=== PATIENT | male | born 1995 | race American Indian/Alaskan Native ===

== ENCOUNTER 2021-01-17 13:40 | Emergency (ER) | payer SELFPAY ==
[2021-01-17 13:48] VITALS: BP 136/83
[2021-01-17] MEDS ORDERED: TETANUS,DIPH,PERTUSS(ACELL) VACCINE 0.5 ML SYRINGE IM ONE (14:26)
[2021-01-17] MEDS ORDERED: HYDROcodone/ACETAMINOPHEN 10-325MG TAB PO ONE (14:26)
--- NOTE | 2021-01-17 15:30 | Cat Scan Report ---
CT MAXILLOFACIAL WITHOUT CONTRAST INDICATION / CLINICAL INFORMATION: Pt has an upper lip laceration, possible fracture. TECHNIQUE: All CT scans at this location are performed using CT dose reduction for ALARA by means of automated e xposure control. COMPARISON: None available. FINDINGS: FACIAL BONES: There are notable edematous changes of the soft tissues along the upper lip with foci o f air compatible patient's reported history of laceration. Additionally, there is notable lucency denisse rounding the left maxillary medial incisor with defect along the anterior cortex at. This finding may be related to an odontogenic disease at. No definitive displaced osseous fragment is identified at. There is mild deviation of the nasal septum cartilage toward the right. The nasal bones appear intact . The remaining facial bones, including the orbital kaur, sinuses and zygomatic arches appear intact. PARANASAL SINUSES: The paranasal sinuses are clear without air-fluid levels at. ORBITS: No significant ventral changes are seen involving the orbits. VISUALIZED INTRACRANIAL STRUCTURES: No significant abnormality. ADDITIONAL FINDINGS: None. IMPRESSION: 1. There are not edematous changes of the soft tissues of the upper left with foci of air compatibl e patient's history of laceration. There is notable lucency surrounding the root of the adjacent left maxillary medial incisor which would appear to be related to an odontogenic disease though correlati on would be needed given the defect of the anterior cortex and traumatic process. Signer Name: Peter Chase MD Signed: 01/17/2021 3:25 PM Workstation Name: [id number]
--- NOTE | 2021-01-17 17:01 | Emergency Department Report ---
- General Chief complaint: Wound/Laceration Stated complaint: LIP INJURY/WORK REALTED Time Seen by Provider: 01/17/21 14:22 Source: patient Mode of arrival: Ambulatory Limitations: No Limitations - History of Present Illness Initial comments: This is a 25-year-old male nontoxic, well nourished in appearance, no acute signs of distress presents to the ED with c/o of frenulum of upper lip laceration that occurred today prior to arrival. Patient stated while at work he tripped and fell hit his upper lip. Patient denies any neck or back pain. Denies any LOC. Denies any other symptoms or complaints. Patient stated bleeding is under control. Denies any numbness, tingling, fever, chills, nausea, vomiting, chest pain, shortness of breath, headache or stiff neck. Patient denies any allergies to significant past medical history. Patient is that he is not up-to-date with tetanus. MD complaint: laceration -: This afternoon Tetanus Up to Date: no Location: face Severity scale (0 -10): 3 Quality: aching Consistency: constant Improves with: none Worsens with: none Associated symptoms: denies other symptoms Treatments Prior to Arrival: none - Related Data Previous Rx's Medication Instructions Recorded Last Taken Type Acetaminophen/Codeine [Tylenol 1 tab PO Q6H PRN #12 tab 01/17/21 Unknown Rx /Codeine # 3 tab] Amoxicillin/K Clav Tab [Augmentin 1 tab PO Q12HR #20 tab 01/17/21 Unknown Rx 875 mg] Allergies Allergy/AdvReac Type Severity Reaction Status Date / Time No Known Allergies Allergy Verified 01/17/21 13:48 Abscess Boil HPI - HPI Chief Complaint: Wound/Laceration Stated Complaint: LIP INJURY/WORK REALTED Time Seen by Provider: 01/17/21 14:22 Home Medications: Previous Rx's Medication Instructions Recorded Last Taken Type Acetaminophen/Codeine [Tylenol 1 tab PO Q6H PRN #12 tab 01/17/21 Unknown Rx /Codeine # 3 tab] Amoxicillin/K Clav Tab [Augmentin 1 tab PO Q12HR #20 tab 01/17/21 Unknown Rx 875 mg] Allergies/Adverse Reactions: Allergies Allergy/AdvReac Type Severity Reaction Status Date / Time No Known Allergies Allergy Verified 01/17/21 13:48 ED Review of Systems ROS: Stated complaint: LIP INJURY/WORK REALTED Other details as noted in HPI Comment: All other systems reviewed and negative Constitutional: denies: chills, fever Eyes: denies: eye pain, eye discharge, vision change ENT: denies: ear pain, throat pain Respiratory: denies: cough, shortness of breath, wheezing Cardiovascular: denies: chest pain, palpitations Endocrine: no symptoms reported Gastrointestinal: denies: abdominal pain, nausea, diarrhea Genitourinary: denies: urgency, dysuria Musculoskeletal: denies: back pain, joint swelling, arthralgia Skin: denies: rash, lesions Neurological: denies: headache, weakness, paresthesias Psychiatric: denies: anxiety, depression Hematological/Lymphatic: denies: easy bleeding, easy bruising ED Past Medical Hx - Medications Home Medications: Home Medications Medication Instructions Recorded Confirmed Last Taken Type Acetaminophen/Codeine [Tylenol 1 tab PO Q6H PRN #12 tab 01/17/21 Unknown Rx /Codeine # 3 tab] Amoxicillin/K Clav Tab [Augmentin 1 tab PO Q12HR #20 tab 01/17/21 Unknown Rx 875 mg] ED Physical Exam - General Limitations: No Limitations General appearance: alert, in no apparent distress - Head Head exam: Present: atraumatic, normocephalic - Eye Eye exam: Present: normal appearance, PERRL, EOMI - ENT ENT exam: Present: normal exam - Expanded ENT Exam Expanded Ear exam: Present: normal external inspection Teeth exam: Present: normal inspection. Absent: dental caries, fractured tooth #, dental tenderness #, gingival enlargement 1 - Other (3 cm lac here) Throat exam: Positive: normal inspection, other (uvula midline). Negative: tonsillar erythema, tonsillomegaly, tonsillar exudate, R peritonsillar mass, L peritonsillar mass - Neck Neck exam: Present: normal inspection, full ROM. Absent: lymphadenopathy - Respiratory Respiratory exam: Absent: respiratory distress - Cardiovascular Cardiovascular Exam: Present: regular rate - Extremities Exam Extremities exam: Present: normal inspection, full ROM, normal capillary refill. Absent: tenderness - Back Exam Back exam: Present: normal inspection, full ROM. Absent: tenderness, CVA tenderness (R), CVA tenderness (L), muscle spasm, paraspinal tenderness, vertebral tenderness, rash noted - Neurological Exam Neurological exam: Present: alert, oriented X3, normal gait - Expanded Neurological Exam Expanded Patient oriented to: Present: person, place, time Cranial nerves: EOM's Intact: Normal, Facial Sensation: Normal Cerebellar function: Finger to Nose: Normal Upper motor neuron: Pronator Drift: Normal, Sensory Extinction: Normal Motor strength exam: RUE: 5, LUE: 5, RLE: 5, LLE: 5 Best Eye Response ([place]): (4) open spontaneously Best Motor Response ([place]): (6) obeys commands Best Verbal Response ([place]): (5) oriented [place] Total: 15 - Psychiatric Psychiatric exam: Present: normal affect, normal mood - Skin Skin exam: Present: warm, dry, intact, normal color. Absent: rash ED Course Vital Signs 01/17/21 13:48 Temperature 97.9 F Pulse Rate 63 Respiratory 14 Rate Blood Pressure 136/83 [Right] O2 Sat by Pulse 99 Oximetry - Reevaluation(s) Reevaluation #1: 01/17/21 17:00 Patient is speaking in full sentences with no signs of distress noted. - Laceration /Wound Repair Face Wound Location: face (frenulum of upper lip) Wound Length (cm): 3 Wound's Depth, Shape: irregular Wound Explored: clean Irrigated w/ Saline (ccs): 40 Betadine Prep?: Yes Volume Anesthetic (ccs): 6 (2% lidocaine with 1:200,000 ) Wound Repaired With: sutures Suture Size/Type: 4:0, proline Number of Sutures: 11 Layer Closure?: No Sterile Dressing Applied?: Yes Progress: Under sterile field, I used Betadine to clean the area. I then used 40 mL of normal saline to flush the area. I then used 2% lidocaine with epi 1-200,000 and injected 6 mL to the wound. I then used a 4-0 Prolene to suture the laceration. Number of stitches 11. I then applied a sterile 4 x 4 with tape. Minimal bleeding noted but is under control. Patient tolerated procedure well with no signs of distress. ED Medical Decision Making - Radiology Data [facility] [address] [place] [id number] Cat Scan Report Signed Patient: JAZZ GOTTLIEB MR#: [id number] : 1995 Acct:[id number] Age/Sex: 25 / M ADM Date: 01/17/21 Loc: ED Attending Dr: Ordering Physician: BRE LECHUGA NP Date of Service: 01/17/21 Procedure(s): CT facial bones wo con Accession Number(s): [id number] cc: BRE LECHUGA NP CT MAXILLOFACIAL WITHOUT CONTRAST INDICATION / CLINICAL INFORMATION: Pt has an upper lip laceration, possible fracture. TECHNIQUE: All CT scans at this location are performed using CT dose reduction for ALARA by means of automated exposure control. COMPARISON: None available. FINDINGS: FACIAL BONES: There are notable edematous changes of the soft tissues along the upper lip with foci of air compatible patient's reported history of laceration. Additionally, there is notable lucency surrounding the left maxillary medial incisor with defect along the anterior cortex at. This finding may be related to an odontogenic disease at. No definitive displaced osseous fragment is identified at. There is mild deviation of the nasal septum cartilage toward the right. The nasal bones appear intact. The remaining facial bones, including the orbital kaur, sinuses and zygomatic arches appear intact. PARANASAL SINUSES: The paranasal sinuses are c lear without air-fluid levels at. ORBITS: No significant ventral changes are seen involving the orbits. VISUALIZED INTRACRANIAL STRUCTURES: No significant abnormality. ADDITIONAL FINDINGS: None. IMPRESSION: 1. There are not edematous changes of the soft tissues of the upper left with foci of air compatible patient's history of laceration. There is notable lucency surrounding the root of the adjacent left maxillary medial incisor which would appear to be related to an odontogenic disease though correlation would be needed given the defect of the anterior cortex and traumatic process. Signer Name: Peter Chase MD Signed: 01/17/2021 3:25 PM Workstation Name: [id number] Transcribed By: MR Dictated By: Peter Chase MD Electronically Authenticated By: Peter Chase MD Signed Date/Time: 01/17/21 1525 DD/ 151 TD/TT: - Medical Decision Making This is a 25-year-old male that presents with laceration. Patient is stable and was examined by me. Patient is notified of the imaging results with no questions noted by the patient. The laceration suturing has been performed and has been performed and patient tolerated well. Patient was educated on proper wound care. Patient is discharged with Augmentin and Tylenol with codeine and w as instructed not to operate any machinery while taking Tylenol with codeine due to drowsiness. Patient received [place] for pain and stated family member will drive patient home after discharge due to possible drowsiness. Patient was instructed to return in 10 days for suture removal. Patient was instructed to refer to Follow-up with a primary care doctor in 3-5 days or if symptoms worsen and continue return to emergency room as soon as possible. At time of discharge, the patient does not seem toxic or ill in appearance. No acute signs of distress noted. Patient agrees to discharge treatment plan of care. No further questions noted by the patient. Critical care attestation.: If time is entered above; I have spent that time in minutes in the direct care of this critically ill patient, excluding procedure time. ED Disposition Clinical Impression: Laceration Fall Qualifiers: Encounter type: initial encounter Qualified Code(s): W19.XXXA - Unspecified fall, initial encounter Disposition: 01 HOME / SELF CARE / HOMELESS Is pt being admited?: No Does the pt Need Aspirin: No Condition: Stable Instructions: Laceration Care, Adult Additional Instructions: Follow-up with a primary care doctor in 3-5 days or if symptoms worsen and continue return to emergency room as soon as possible. No eating until numbness subsides. Return in 10 days for suture removal. No hard solid foods for the next 2 to 3 days. Prescriptions: Amoxicillin/K Clav Tab [Augmentin 875 mg] 1 tab PO Q12HR #20 tab Acetaminophen/Codeine [Tylenol /Codeine # 3 tab] 1 tab PO Q6H PRN #12 tab PRN Reason: Pain , Severe (7-10) Referrals: PRIMARY MD DONALD [Primary Care Provider] - 3-5 Days BRIDGET WILLSON MD [Staff Physician] - 3-5 Days Forms: Work/School Release Form(ED) Time of Disposition: 17:09
== END 2021-01-17 18:19 | disposition home or self-care (01) ==
LOC: ED 13:40
DX: S01.511A Laceration without foreign body of lip, initial encounter (principal); Z79.899 Other long term (current) drug therapy; W18.39XA Other fall on same level, initial encounter; Y93.89 Activity, other specified; Y92.89 Other specified places as the place of occurrence of the external cause; Y99.8 Other external cause status
CPT/HCPCS: 70486; 90471; 90715; 99283

== ENCOUNTER 2021-02-02 22:29 | Emergency (ER) | payer SELFPAY ==
[2021-02-02 23:11] VITALS: BP 129/62
--- NOTE | 2021-02-03 00:42 | Emergency Department Report ---
Suture/Staple Removal - [facility] Chief Complaint: Laceration/Recheck/Suture Stated Complaint: STICHES REMOVED Time Seen by Provider: 02/03/21 00:32 When Sutures or [place] Placed: 11-14 Days Ago Wound Location: underneath upper lip ED Review of Systems ROS: Stated complaint: STICHES REMOVED Other details as noted in HPI Comment: All other systems reviewed and negative Skin: other (laceration s/p repair ) ED Past Medical Hx - Past Medical History Previous Medical History?: No - Surgical History Past Surgical History?: No - Medications Home Medications: Home Medications Medication Instructions Recorded Confirmed Last Taken Type Acetaminophen/Codeine [Tylenol 1 tab PO Q6H PRN #12 tab 01/17/21 Unknown Rx /Codeine # 3 tab] Amoxicillin/K Clav Tab [Augmentin 1 tab PO Q12HR #20 tab 01/17/21 Unknown Rx 875 mg] Suture Removal Exam - Exam General: Vital signs noted. No distress. Alert and acting appropriately. Wound: No Pathologic Erythema, No Tenderness, No Drainage, No Pus, No Wound Dehiscence Other Systems: All other systems reviewed and are unremarkable. ED Course Vital Signs 02/02/21 23:10 Temperature 98.6 F Pulse Rate 78 Respiratory 20 Rate Blood Pressure 129/62 O2 Sat by Pulse 99 Oximetry ED Recheck MDM - Medical Decision Making Repaired lack noted to the inner upper lip. Prolene sutures noted and still in place. All sutures were removed by me. No wound dehiscence. No signs of infection. Patient tolerated procedure well without any complications Critical care attestation.: If time is entered above; I have spent that time in minutes in the direct care of this critically ill patient, excluding procedure time. ED Disposition Clinical Impression: Visit for suture removal Disposition: HOME / SELF CARE / HOMELESS Is pt being admited?: No Does the pt Need Aspirin: No Condition: Stable Instructions: Wound Closure Removal, Care After Additional Instructions: Continue to brush your teeth as normal. Recommend using mouthwash that does not contain alcohol. Take Tylenol or ibuprofen as needed. Follow-up with your PCP as needed. Referrals: PRIMARY CARE, [Primary Care Provider] - 3-5 Days Time of Disposition: 00:42
== END 2021-02-03 00:47 | disposition home or self-care (01) ==
LOC: ED 22:29
DX: Z48.02 Encounter for removal of sutures (principal)